=== PATIENT | male | born 1960 | race Two or more races ===

== ENCOUNTER → 2016-11-03 | Outpatient (CLI) | payer OTHER | LOC: RAD 17:16 | PROVIDERS: ATTEND Family Medicine | DX: M67.449 Ganglion, unspecified hand (principal) ==

== ENCOUNTER 2017-03-02 19:19 | Emergency (ER) | payer OTHER ==
[2017-03-02 19:35] VITALS: BP 141/76
--- NOTE | 2017-03-02 22:14 | ER Document Report ---
ED Skin Rash/Insect Bite/Abscs - General Chief Complaint: Rash Stated Complaint: RASH Time Seen by Provider: 03/02/17 22:11 Mode of Arrival: Ambulatory Information source: Patient Notes: Patient is a 57-year-old male brought into [facility] department today for rash all over his body that began 2 days ago. Patient does not know if he's allergic to anything, denies any new foods, detergents, soaps, being outside of her implants or anything new that he knows of. He did have a similar reaction to something in April. He did have some hydroxyzine left over which did help with the itching. He denies any shortness of breath or trouble breathing. TRAVEL OUTSIDE OF THE [place] IN LAST 30 DAYS: No - Related Data Allergies/Adverse Reactions: No Known Allergies Allergy (Verified 03/02/17 19:31) Past Medical History - General Information source: Patient - Social History Smoking Status: Unknown if Ever Smoked Family History: Reviewed & Not Pertinent Renal/ Medical History: Denies: Hx Peritoneal Dialysis Review of Systems - Review of Systems Constitutional: No symptoms reported EENT: No symptoms reported Cardiovascular: No symptoms reported Respiratory: No symptoms reported Gastrointestinal: No symptoms reported Genitourinary: No symptoms reported Male Genitourinary: No symptoms reported Musculoskeletal: No symptoms reported Skin: See HPI Hematologic/Lymphatic: No symptoms reported Neurological/Psychological: No symptoms reported Physical Exam - Vital signs Vitals: Temp Pulse Resp BP Pulse Ox 98.1 F 98 20 141/76 H 98 03/02/17 19:31 03/02/17 19:31 03/02/17 19:31 03/02/17 19:31 03/02/17 19:31 - Notes Notes: PHYSICAL EXAMINATION: GENERAL: Well-appearing and in no acute distress. HEAD: Atraumatic, normocephalic. EYES: Pupils equal round and reactive to light, extraocular movements intact, sclera anicteric, conjunctiva are normal. ENT: ear canals without erythema or foreign body, TMs pearly aly with good bony landmarks, nares patent, oropharynx clear without exudates. Moist mucous membranes. NECK: Normal range of motion, supple without lymphadenopathy LUNGS: CTAB and equal. No wheezes rales or rhonchi. HEART: Regular rate and rhythm without murmurs EXTREMITIES: Normal range of motion, no pitting edema. No cyanosis. NEUROLOGICAL: Cranial nerves grossly intact. Normal sensory/motor exams. PSYCH: Normal mood, normal affect. SKIN: Warm, Dry, normal turgor, urticaria over abdomen, back, bilateral arms and legs, excoriation present Course - Re-evaluation Re-evalutation: 03/02/17 22:30 Patient given Solu-Medrol, Pepcid, Benadryl here, advised to continue hydroxyzine as needed for itching. Advised to follow-up with his primary care provider to get in with an potato spotter. - Vital Signs Vital signs: Temp Pulse Resp BP Pulse Ox 98.1 F 98 20 141/76 H 98 03/02/17 19:31 03/02/17 19:31 03/02/17 19:31 03/02/17 19:31 03/02/17 19:31 Discharge - Discharge Clinical Impression: Urticaria Allergic reaction Qualifiers: Encounter type: initial encounter Qualified Code(s): T78.40XA - Allergy, unspecified, initial encounter Condition: Stable Disposition: HOME, SELF-CARE Additional Instructions: Please take Benadryl every 4 hours until rash resolves. Return immediately for any new or worsening symptoms. Follow up with primary care provider, call tomorrow to make followup appointment. Prescriptions: Famotidine [Pepcid 20 mg Tablet] 20 mg PO BID #30 tablet
[2017-03-02] MEDS ORDERED: FAMOTIDINE INJ/PF 20 MG/2 ML SDV IV ONE (22:28)
[2017-03-02] MEDS ORDERED: METHYLPREDNISOLONE INJ 125 MG/2 ML SDV IV ONE (22:28)
[2017-03-02] MEDS ORDERED: DIPHENHYDRAMINE HCL 50 MG CAPSULE PO ONE (22:28)
[2017-03-02] MEDS ORDERED: METHYLPREDNISOLONE INJ 125 MG/2 ML SDV IM ONE (22:36)
== END 2017-03-02 22:50 | disposition home or self-care (01) ==
LOC: ER 19:19
DX: L50.9 Urticaria, unspecified (principal); T78.40XA Allergy, unspecified, initial encounter; J06.9 Acute upper respiratory infection, unspecified; X58.XXXA Exposure to other specified factors, initial encounter
CPT/HCPCS: 99282; 96372; 96374; J2930; S0028